=== PATIENT | female | born 1985 | race Caucasian/White ===

== ENCOUNTER 2025-03-03 20:21 | Emergency (ER) | payer MEDICAID, SELFPAY ==
[2025-03-03 20:24] VITALS: BMI 24.4
[2025-03-03 20:50] VITALS: BP 113/84; PULSE 115; RESP 18; TEMP 37; O2SAT 96
--- NOTE | 2025-03-03 21:47 | PC.NURSE ---
[facility] log number [id number]
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
[2025-03-03] MEDS: HYDROcodone/APAP 5/325 TABLET 1 TAB PO (22:52)
[2025-03-03] MEDS: DIAZEPAM 5 MG TABLET PO (22:53)
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
[2025-03-03 23:14] LABS: HCG Qualitative,Urine Negative
[2025-03-03 23:18] LABS: Alcohol, Urine Negative (Negative); Amphetamine/Methamp Scrn,U Negative (Negative); Barbiturate Screen,Urine Negative (Negative); Benzodiazepines Screen,Urine Negative (Negative); Benzoylecgonine Screen, Ur Negative (Negative); Fentanyl Screen,Urine Negative (Negative); Opiate Screen,Urine Negative (Negative); THC Screen,Urine Positive (Negative)
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
[2025-03-04 00:54] VITALS: BP 112/77; PULSE 95; RESP 18; TEMP 36.8; O2SAT 98
== END 2025-03-04 00:59 | disposition home or self-care (01) ==
PROVIDERS: Physician Assistant; Emergency Provider Emergency Medicine; PCP Physician Assistant
DX: S10.93XA Contusion of unspecified part of neck, initial encounter (principal); S00.83XA Contusion of other part of head, initial encounter; S00.93XA Contusion of unspecified part of head, initial encounter; S30.0XXA Contusion of lower back and pelvis, initial encounter; R93.0 Abnormal findings on diagnostic imaging of skull and head, not elsewhere classified; V49.9XXA Car occupant (driver) (passenger) injured in unspecified traffic accident, initial encounter
CPT/HCPCS: 70450; 70486; 72125; 72131; 80307; 80320; 81025; 99284; A9270; G0480